=== PATIENT | female | born 1970 | race Caucasian/White ===

== ENCOUNTER 2018-05-29 11:09 | Inpatient (IN) | payer BC ==
[~2018-05-29] VITALS: Ht 160 cm; Wt 108.3 kg
[~2018-05-29 11:09] MED LIST: LEVO112T4 PO; OMEP40CA6 PO
--- NOTE | 2018-05-29 11:40 | NUR ---
First contact with pt. Pt changing into hospital gown. Pt has steady gait and balance. Family at bedside. KATERINA.
[2018-05-29] MEDS ORDERED: ONDANSETRON 2MG/ML, 2ML IVPush ONE (12:30)
[2018-05-29] MEDS ORDERED: MORPHINE SULFATE 4 MG/ML, 1ML IVPush PRN (12:30)
[2018-05-29] MEDS ORDERED: SODIUM CHLORIDE 0.9% 1,000ML IVBOLUS ONE (12:30)
[2018-05-29] MEDS ORDERED: SODIUM CHLORIDE FLUSH 10ML SYR IVF ONE (12:30)
[2018-05-29] MEDS ORDERED: PIPERACILLIN/TAZO/PMX 3.375GM 50 ML IVPB ONE (12:30)
[2018-05-29] MEDS ORDERED: ACETAMINOPHEN 500 MG TABLET PO ONE (12:30)
[2018-05-29] MEDS ORDERED: VANCOMYCIN PER PHARMACY IV ONE (12:30)
[2018-05-29] MEDS ORDERED: ACETAMINOPHEN 500 MG TABLET ONE (12:36)
[2018-05-29] MEDS ORDERED: ONDANSETRON 2MG/ML, 2ML ONE ×2 (12:55→17:22)
[2018-05-29] MEDS ORDERED: HYDROmorphone 1 MG/ML, 1ML ONE (12:55)
[2018-05-29] MEDS ORDERED: VANCOMYCIN 2,000 MG in SODIUM CHLORIDE 0.9% 500 ML IV ONE (13:00)
[2018-05-29] MEDS ORDERED: HYDROmorphone 1 MG/ML, 1ML IM ONE (13:00)
[2018-05-29 13:21] LABS: BASOPHILS # (AUTO) 0.02 x10^3/uL (0-0.1); BASOPHILS % (AUTO) 0 % (0-1); EOSINOPHILS # (AUTO) 0.11 x10^3/uL (0-0.4); EOSINOPHILS % (AUTO) 1 % (1-7); LYMPHOCYTES # (AUTO) 1.38 x10^3/uL (1-3.4); LYMPHOCYTES % (AUTO) 9 % (22-44); MD NO; MEAN CORPUSCULAR HEMOGLOBIN 26.8 pg (27.0-34.8); MEAN CORPUSCULAR HGB CONC 32.7 g/dL (32.4-35.8); MEAN PLATELET VOLUME 8.6 fL (7.4-10.4); MONOCYTES # (AUTO) 0.38 x10^3/uL (0.2-0.8); MONOCYTES % (AUTO) 3 % (2-9); NEUTROPHILS # (AUTO) 13.42 x10^3/uL (1.8-6.8); NEUTROPHILS % (AUTO) 88 % (42-75); PLATELET COUNT 347 x10^3/uL (130-400); RED BLOOD COUNT 4.87 x10^6/uL (3.82-5.3); RED CELL DISTRIBUTION WIDTH 15.3 % (9.6-15.2)
--- NOTE | 2018-05-29 13:24 | NUR ---
TASK RN: THIS RN PLACED US GUIDED PIV IN PT. PT TEARFUL DURING PROCEDURE. REQUESTING PILLOW FOR COMFORT. PT VERY ANXIOUS DESPIT THERAPEUTIC COMMUNICATION.
[2018-05-29 13:33] LABS: ALANINE AMINOTRANSFERASE 41 U/L (12-78); ALBUMIN 3.5 g/dL (3.4-5.0); ANION GAP 10 mmol/L (5-15); CALCIUM 8.8 mg/dL (8.5-10.1); CHLORIDE 106 mmol/L (98-107); CREATININE 0.97 mg/dL (0.55-1.02)
[2018-05-29 13:35] LABS: ALKALINE PHOSPHATASE 90 U/L (45-117); BILIRUBIN,TOTAL 0.4 mg/dL (0.2-1.0); TOTAL PROTEIN 7.9 g/dL (6.4-8.2)
--- NOTE | 2018-05-29 13:45 | NUR ---
DANE RN NOTE: PATIENT HAS IV FLUIDS RUNNING. PATIENT HAS VANYCO RUNNING. FAMILY AT BS. REQUESTED FAMILY AND PATIENT TO PUT MASK ON FOR DURATION OF ER STAY. FMAILY AND PATIENT COMPLIANT
--- NOTE | 2018-05-29 13:55 | NUR ---
DANE RN: PATIETN TAKEN TO CT SCAN!
[2018-05-29] MEDS ORDERED: IBUPROFEN 200 MG TABLET PO ONE (14:00)
[2018-05-29] MEDS ORDERED: SODIUM CHLORIDE 0.9% 1,000 ML IV ONE (14:02)
[2018-05-29] MEDS ORDERED: OMNIPAQUE 350 MG/ML, 75ML BOTTLE ONE (14:14)
--- NOTE | 2018-05-29 14:22 | NUR ---
Provided report to ELSA Shah. All questions answered. Pt ready to transfer to floor from ED.
[2018-05-29] MEDS ORDERED: SODIUM CHLORIDE 0.9% 1,000 ML IV SCH (14:27)
[2018-05-29 14:30] VITALS: BP 102/68
[2018-05-29] MEDS ORDERED: BISACODYL 10 MG SUPP PR PRN (14:30)
[2018-05-29] MEDS ORDERED: LIDODERM 5% PATCH TD PRN (14:30)
[2018-05-29] MEDS ORDERED: ONDANSETRON ODT 4 MG PO PRN (14:30)
[2018-05-29] MEDS ORDERED: ONDANSETRON 2MG/ML, 2ML IVPush PRN (14:30)
[2018-05-29] MEDS ORDERED: VANCOMYCIN PER PHARMACY MC PRN (14:30)
[2018-05-29] MEDS ORDERED: ZOLPIDEM 5MG TABLET PO PRN (14:30)
[2018-05-29 15:07] LABS: FREE T4 (FREE THYROXINE) 1.36 ng/dL (0.76-1.46); THYROID STIMULATING HORMONE 0.451 mIU/L (0.358-3.740)
[2018-05-29 15:44] LABS: HCT (SEDRATE) 39.5 % (34.6-47.8)
[2018-05-29 16:00] VITALS: BP 102/68
[2018-05-29] MEDS ORDERED: PHARMACOKINETIC MONITORING MC PRN (16:00)
[2018-05-29] MEDS ORDERED: PHARMACOKINETIC CONSULTATION MC ONE (16:00)
[2018-05-29] MEDS ORDERED: FENTANYL PF 100 MCG/2ML ONE ×3 (16:54→18:54)
[2018-05-29] MEDS ORDERED: MIDAZOLAM 1 MG/ML, 2ML ONE (16:54)
[2018-05-29] MEDS ORDERED: LABETALOL 5MG/ML, 20ML IV PRN (17:00)
[2018-05-29] MEDS ORDERED: LORazepam 2 MG/ML, 1ML IVPush PRN (17:00)
[2018-05-29] MEDS ORDERED: ACETAMINOPHEN 325 MG TABLET PO PRN (17:00)
[2018-05-29] MEDS ORDERED: METOCLOPRAMIDE 5 MG/ML, 2ML IV PRN (17:00)
[2018-05-29] MEDS ORDERED: MEPERIDINE/PF 25MG/0.5ML IVPush PRN (17:00)
[2018-05-29] MEDS ORDERED: DEXAMETHASONE 4 MG/ML, 1ML ONE (17:22)
[2018-05-29] MEDS ORDERED: KETOROLAC 30 MG/1 ML ONE (17:22)
[2018-05-29] MEDS ORDERED: PROPOFOL 10 MG/ML, 20ML ONE (17:22)
[2018-05-29] MEDS ORDERED: SUCCINYLCHOLINE 20 MG/ML, 10ML ONE (17:22)
[2018-05-29 17:46] LABS: MICROSCOPIC NOT IND
[2018-05-29 17:50] LABS: CULTURE INDICATED? NO
[2018-05-29] MEDS ORDERED: BUPIVACAINE/PF-EPI 0.5% 1:200K ONE (17:53)
[2018-05-29] MEDS ORDERED: BUPIVACAINE/PF-EPI 0.5% 1:200K INFIL ONE (17:56)
[2018-05-29] MEDS ORDERED: OXYcodone 5 MG/5 ML ORAL.SOL UDC ONE ×2 (18:23→18:54)
[2018-05-29] MEDS: OXYcodone 5 MG/5 ML ORAL.SOL UDC PO PRN ×2 (18:40→18:55)
[2018-05-29] MEDS: FENTANYL PF 100 MCG/2ML IV PRN ×2 (18:55→19:00)
[2018-05-29] MEDS ORDERED: HYDROmorphone 2 MG/ML, 1ML ONE (19:13)
[2018-05-29] MEDS: HYDROmorphone 2 MG/ML, 1ML IVPush PRN ×2 (19:14→19:21)
[2018-05-29 19:52] VITALS: BP 112/68
[2018-05-29] MEDS ORDERED: HYDROmorphone 1 MG/ML, 1ML IV PRN (20:00)
[2018-05-29] MEDS: PIPERACILLIN/TAZO/PMX 3.375GM 50 ML IV SCH (21:13)
[2018-05-29] MEDS: ENOXAPARIN 40 MG/0.4 ML SQ SCH (22:05)
[2018-05-30] MEDS: HYDROcodone/APAP 5/325 TABLET PO PRN ×5 (01:15→19:16)
[2018-05-30 03:09] VITALS: BP 94/55
[2018-05-30] MEDS: PIPERACILLIN/TAZO/PMX 3.375GM 50 ML IV SCH ×4 (03:24→23:16)
[2018-05-30 04:44] LABS: MEAN CORPUSCULAR HEMOGLOBIN 27.6 pg (27.0-34.8); MEAN CORPUSCULAR HGB CONC 33.3 g/dL (32.4-35.8); MEAN CORPUSCULAR VOLUME 82.8 fL (80-100); MEAN PLATELET VOLUME 8.5 fL (7.4-10.4); PLATELET COUNT 308 x10^3/uL (130-400); RED BLOOD COUNT 4.36 x10^6/uL (3.82-5.3); RED CELL DISTRIBUTION WIDTH 15.3 % (9.6-15.2)
[2018-05-30 04:57] LABS: ANION GAP 7 mmol/L (5-15); CALCIUM 8.4 mg/dL (8.5-10.1); CHLORIDE 109 mmol/L (98-107)
[2018-05-30 05:06] LABS: CHOL/HDL RATIO 5.8; CHOLESTEROL, TOTAL 250 mg/dL (140-239); CREATININE 1.06 mg/dL (0.55-1.02); HDL CHOL % 17 % (28-40); HDL CHOLESTEROL (DIRECT) 43 mg/dL (40-60); LDL CHOLESTEROL,CALCULATED 189 mg/dL (54-169); LDL/HDL RATIO 4.4 (0.5-3.0); TRIGLYCERIDES 90 mg/dL (50-200); VLDL CHOLESTEROL 18 mg/dL (0-25)
[2018-05-30 05:22] LABS: BASOPHILS # (AUTO) 0.07 x10^3/uL (0-0.1); BASOPHILS % (AUTO) 0 % (0-1); EOSINOPHILS % (AUTO) 0 % (1-7); LYMPHOCYTES # (AUTO) 1.34 x10^3/uL (1-3.4); LYMPHOCYTES % (AUTO) 6 % (22-44); MD SCAN; MONOCYTES # (AUTO) 0.39 x10^3/uL (0.2-0.8); MONOCYTES % (AUTO) 2 % (2-9); NEUTROPHILS # (AUTO) 21.46 x10^3/uL (1.8-6.8); NEUTROPHILS % (AUTO) 92 % (42-75)
[2018-05-30] MEDS: DOCUSATE 100 MG CAPSULE PO PRN (05:46)
[2018-05-30] MEDS: LEVOTHYROXINE 112 MCG TABLET PO SCH (05:46)
[2018-05-30 08:35] VITALS: BP 105/65
[2018-05-30] MEDS: VANCOMYCIN 1,900 MG in SODIUM CHLORIDE 0.9% 250 ML IV SCH (08:43)
[2018-05-30] MEDS: POLYETHYLENE GLYCOL 17 GM PACKET PO PRN (17:20)
[2018-05-30] MEDS: SODIUM CHLORIDE 0.9% 1,000 ML IV SCH ×2 (17:27→22:41)
[2018-05-30 19:20] VITALS: BP 115/69
[2018-05-30] MEDS: ENOXAPARIN 40 MG/0.4 ML SQ SCH (22:41)
[2018-05-31 02:21] VITALS: BP 143/82
[2018-05-31] MEDS: VANCOMYCIN 1,900 MG in SODIUM CHLORIDE 0.9% 250 ML IV SCH (04:08)
[2018-05-31] MEDS: PIPERACILLIN/TAZO/PMX 3.375GM 50 ML IV SCH ×3 (06:13→18:45)
[2018-05-31] MEDS: LEVOTHYROXINE 112 MCG TABLET PO SCH (06:13)
[2018-05-31] MEDS: OMEPRAZOLE 20 MG CAPSULE.DR PO SCH (06:13)
[2018-05-31] MEDS: SODIUM CHLORIDE 0.9% 1,000 ML IV SCH ×3 (06:34→23:37)
[2018-05-31] MEDS: HYDROcodone/APAP 5/325 TABLET PO PRN ×4 (06:35→20:50)
[2018-05-31 06:47] LABS: BASOPHILS # (AUTO) 0.01 x10^3/uL (0-0.1); BASOPHILS % (AUTO) 0 % (0-1); EOSINOPHILS # (AUTO) 0.23 x10^3/uL (0-0.4); EOSINOPHILS % (AUTO) 1 % (1-7); LYMPHOCYTES # (AUTO) 3.02 x10^3/uL (1-3.4); LYMPHOCYTES % (AUTO) 19 % (22-44); MD NO; MEAN CORPUSCULAR HEMOGLOBIN 27.6 pg (27.0-34.8); MEAN CORPUSCULAR HGB CONC 33.1 g/dL (32.4-35.8); MEAN CORPUSCULAR VOLUME 83.2 fL (80-100); MEAN PLATELET VOLUME 8.6 fL (7.4-10.4); MONOCYTES # (AUTO) 0.72 x10^3/uL (0.2-0.8); MONOCYTES % (AUTO) 5 % (2-9); NEUTROPHILS # (AUTO) 11.97 x10^3/uL (1.8-6.8); NEUTROPHILS % (AUTO) 75 % (42-75); PLATELET COUNT 286 x10^3/uL (130-400); RED BLOOD COUNT 3.89 x10^6/uL (3.82-5.3); RED CELL DISTRIBUTION WIDTH 15.4 % (9.6-15.2)
[2018-05-31 06:54] LABS: ANION GAP 3 mmol/L (5-15); CALCIUM 8.2 mg/dL (8.5-10.1); CHLORIDE 113 mmol/L (98-107); CREATININE 0.71 mg/dL (0.55-1.02)
[2018-05-31 08:44] VITALS: BP 131/74
[2018-05-31] MEDS: POLYETHYLENE GLYCOL 17 GM PACKET PO PRN (11:20)
[2018-05-31] MEDS: DOCUSATE 100 MG CAPSULE PO PRN (11:20)
[2018-05-31 14:52] VITALS: BP 136/75
[2018-05-31 21:36] VITALS: BP 134/79
[2018-05-31] MEDS: ENOXAPARIN 40 MG/0.4 ML SQ SCH (22:06)
[2018-06-01] MEDS: PIPERACILLIN/TAZO/PMX 3.375GM 50 ML IV SCH ×4 (00:20→17:21)
[2018-06-01] MEDS: DOCUSATE 100 MG CAPSULE PO PRN (01:02)
[2018-06-01] MEDS: HYDROcodone/APAP 5/325 TABLET PO PRN ×5 (01:02→21:35)
[2018-06-01 03:37] VITALS: BP 125/69
[2018-06-01 06:04] LABS: ANION GAP 7 mmol/L (5-15); CALCIUM 8.2 mg/dL (8.5-10.1); CHLORIDE 110 mmol/L (98-107)
[2018-06-01 06:05] LABS: BASOPHILS # (AUTO) 0.06 x10^3/uL (0-0.1); BASOPHILS % (AUTO) 1 % (0-1); EOSINOPHILS # (AUTO) 0.62 x10^3/uL (0-0.4); EOSINOPHILS % (AUTO) 6 % (1-7); LYMPHOCYTES # (AUTO) 3.15 x10^3/uL (1-3.4); LYMPHOCYTES % (AUTO) 32 % (22-44); MD NO; MEAN CORPUSCULAR HGB CONC 32.7 g/dL (32.4-35.8); MEAN CORPUSCULAR VOLUME 82.4 fL (80-100); MEAN PLATELET VOLUME 8.1 fL (7.4-10.4); MONOCYTES # (AUTO) 0.48 x10^3/uL (0.2-0.8); MONOCYTES % (AUTO) 5 % (2-9); NEUTROPHILS # (AUTO) 5.45 x10^3/uL (1.8-6.8); NEUTROPHILS % (AUTO) 56 % (42-75); PLATELET COUNT 322 x10^3/uL (130-400); RED BLOOD COUNT 3.97 x10^6/uL (3.82-5.3); RED CELL DISTRIBUTION WIDTH 15.3 % (9.6-15.2)
[2018-06-01 06:06] LABS: CREATININE 0.86 mg/dL (0.55-1.02)
[2018-06-01] MEDS: SODIUM CHLORIDE 0.9% 1,000 ML IV SCH ×2 (06:06→14:27)
[2018-06-01] MEDS: LEVOTHYROXINE 112 MCG TABLET PO SCH (06:06)
[2018-06-01 08:26] VITALS: BP 147/77
[2018-06-01 15:57] VITALS: BP 161/94
[2018-06-01 19:26] VITALS: BP 177/100
[2018-06-01] MEDS: hydrALAzine 20 MG/ML, 1ML IVPush PRN (20:01)
[2018-06-01] MEDS ORDERED: hydrALAzine 20 MG/ML, 1ML IV PRN (21:30)
[2018-06-01] MEDS: ENOXAPARIN 40 MG/0.4 ML SQ SCH (21:30)
[2018-06-01 23:10] VITALS: BP 156/80
[2018-06-02] MEDS: PIPERACILLIN/TAZO/PMX 3.375GM 50 ML IV SCH ×3 (00:11→12:15)
[2018-06-02] MEDS: SODIUM CHLORIDE 0.9% 1,000 ML IV SCH ×2 (00:11→06:27)
[2018-06-02] MEDS ORDERED: PROMETHAZINE 25 MG/ML, 1ML IM PRN (00:30)
[2018-06-02 01:41] VITALS: BP 154/88
[2018-06-02] MEDS: ACETAMINOPHEN 325 MG TABLET PO PRN ×4 (04:34→20:38)
[2018-06-02 04:48] LABS: BASOPHILS # (AUTO) 0.03 x10^3/uL (0-0.1); BASOPHILS % (AUTO) 0 % (0-1); EOSINOPHILS # (AUTO) 0.39 x10^3/uL (0-0.4); EOSINOPHILS % (AUTO) 4 % (1-7); LYMPHOCYTES % (AUTO) 18 % (22-44); MD NO; MEAN CORPUSCULAR HEMOGLOBIN 27.3 pg (27.0-34.8); MEAN CORPUSCULAR VOLUME 82.6 fL (80-100); MEAN PLATELET VOLUME 8.2 fL (7.4-10.4); MONOCYTES # (AUTO) 0.38 x10^3/uL (0.2-0.8); MONOCYTES % (AUTO) 4 % (2-9); NEUTROPHILS # (AUTO) 8.34 x10^3/uL (1.8-6.8); NEUTROPHILS % (AUTO) 75 % (42-75); PLATELET COUNT 382 x10^3/uL (130-400); RED BLOOD COUNT 4.27 x10^6/uL (3.82-5.3); RED CELL DISTRIBUTION WIDTH 15.6 % (9.6-15.2)
[2018-06-02 05:01] LABS: CALCIUM 8.7 mg/dL (8.5-10.1); CHLORIDE 106 mmol/L (98-107)
[2018-06-02 05:05] LABS: ANION GAP 7 mmol/L (5-15); CREATININE 0.84 mg/dL (0.55-1.02)
[2018-06-02] MEDS: OMEPRAZOLE 20 MG CAPSULE.DR PO SCH (05:24)
[2018-06-02] MEDS: LEVOTHYROXINE 112 MCG TABLET PO SCH (05:26)
[2018-06-02 07:40] VITALS: BP 151/79
[2018-06-02] MEDS ORDERED: FUROSEMIDE 40 MG/4 ML IV ONE (12:30)
[2018-06-02] MEDS ORDERED: CEFAZOLIN 2,000 MG in SODIUM CHLORIDE 0.9% 50 ML IV SCH (14:30)
[2018-06-02] MEDS ORDERED: CEFAZOLIN PMX 2GM/50ML 50 ML IVPB SCH (14:30)
[2018-06-02 14:45] VITALS: BP 160/88
[2018-06-02] MEDS: CEFAZOLIN PMX 2GM/50ML 50 ML IVPB SCH ×2 (15:00→22:54)
[2018-06-02 20:00] VITALS: BP 150/82
[2018-06-02] MEDS: ENOXAPARIN 40 MG/0.4 ML SQ SCH (22:51)
[2018-06-03 02:00] VITALS: BP 173/84
[2018-06-03] MEDS: LEVOTHYROXINE 112 MCG TABLET PO SCH (04:54)
[2018-06-03 05:37] LABS: BASOPHILS # (AUTO) 0.05 x10^3/uL (0-0.1); BASOPHILS % (AUTO) 0 % (0-1); EOSINOPHILS # (AUTO) 0.68 x10^3/uL (0-0.4); EOSINOPHILS % (AUTO) 6 % (1-7); LYMPHOCYTES % (AUTO) 31 % (22-44); MD NO; MEAN CORPUSCULAR HEMOGLOBIN 27.3 pg (27.0-34.8); MEAN CORPUSCULAR VOLUME 82.9 fL (80-100); MEAN PLATELET VOLUME 8.1 fL (7.4-10.4); MONOCYTES # (AUTO) 0.66 x10^3/uL (0.2-0.8); MONOCYTES % (AUTO) 5 % (2-9); NEUTROPHILS # (AUTO) 7.02 x10^3/uL (1.8-6.8); NEUTROPHILS % (AUTO) 58 % (42-75); PLATELET COUNT 415 x10^3/uL (130-400); RED BLOOD COUNT 4.41 x10^6/uL (3.82-5.3); RED CELL DISTRIBUTION WIDTH 15.3 % (9.6-15.2)
[2018-06-03 05:41] LABS: ANION GAP 7 mmol/L (5-15); CALCIUM 8.9 mg/dL (8.5-10.1); CHLORIDE 107 mmol/L (98-107)
[2018-06-03 05:42] LABS: CREATININE 0.89 mg/dL (0.55-1.02)
[2018-06-03] MEDS ORDERED: CEPHALEXIN 500 MG CAPSULE PO SCH (07:00)
[2018-06-03 07:50] VITALS: BP 179/74
[2018-06-03] MEDS: hydrALAzine 20 MG/ML, 1ML IVPush PRN (07:59)
[2018-06-03] MEDS ORDERED: CEPH-368 PO (12:02)
[2018-06-03] MEDS ORDERED: CEPH-376 PO (12:02)
[2018-06-03] MEDS ORDERED: ACET325T14 PO (12:02)
[2018-06-03] MEDS ORDERED: HYDR-3343 PO (12:24)
[2018-06-03 13:30] VITALS: BP 166/95
== END 2018-06-03 13:50 | disposition home or self-care (01) | DRG 856 ==
LOC: ED 14:29 → 3NW 14:58 → DCLOUNGE 06-03 13:30
PROVIDERS: ADMIT Hospitalist; ATTEND Hospitalist
PROC: 0HPT0NZ Removal of Tissue Expander from Right Breast, Open Approach (ICD-10-PCS; principal; 2018-05-29 17:00)
PROC: 02HV33Z Insertion of Infusion Device into Superior Vena Cava, Percutaneous Approach (ICD-10-PCS; 2018-05-30)
PROC: B5181ZA Fluoroscopy of Superior Vena Cava using Low Osmolar Contrast, Guidance (ICD-10-PCS; 2018-05-30)
PROC: B548ZZA Ultrasonography of Superior Vena Cava, Guidance (ICD-10-PCS; 2018-05-30)
DX: T81.41XA Infection following a procedure, superficial incisional surgical site, initial encounter (principal); A41.9 Sepsis, unspecified organism; T85.79XA Infection and inflammatory reaction due to other internal prosthetic devices, implants and grafts, initial encounter; L03.313 Cellulitis of chest wall; Y83.1 Surgical operation with implant of artificial internal device as the cause of abnormal reaction of the patient, or of later complication, without mention of misadventure at the time of the procedure; D63.8 Anemia in other chronic diseases classified elsewhere; E78.00 Pure hypercholesterolemia, unspecified; K76.0 Fatty (change of) liver, not elsewhere classified; K21.9 Gastro-esophageal reflux disease without esophagitis; E78.5 Hyperlipidemia, unspecified; E89.0 Postprocedural hypothyroidism; N61.1 Abscess of the breast and nipple; F41.9 Anxiety disorder, unspecified; Z85.3 Personal history of malignant neoplasm of breast; Z90.13 Acquired absence of bilateral breasts and nipples; Y92.89 Other specified places as the place of occurrence of the external cause; Z80.3 Family history of malignant neoplasm of breast; Z90.710 Acquired absence of both cervix and uterus; Z92.3 Personal history of irradiation; Z88.8 Allergy status to other drugs, medicaments and biological substances
CPT/HCPCS: 36415; 36573; 71260; 80048; 80053; 80061; 81003; 83605; 83735; 84100; 84439; 84443; 85025; 85651; 86140; 87040; 87070; 87075; 87077; 87186; 87205; 96374; 96375; 96376; C1729; G0378; J0690; J1100; J1170; J1650; J1885; J1940; J2250; J2405; J2543; J2550; J2704; J3010; J3370; Q0162; Q9967; C1751; J0330; J0360; J7030; J7040; J7050

== ENCOUNTER → 2018-06-22 | Outpatient (CLI) | payer BC ==
[~2018-06-22] MED LIST changes: +ACET325T14 PO; +CEPH-368 PO; +CEPH-376 PO; +HYDR-3343 PO
== END | disposition home or self-care (01) ==
LOC: RAD 15:37
PROVIDERS: ATTEND Specialist
DX: M79.89 Other specified soft tissue disorders (principal); M79.602 Pain in left arm; C50.811 Malignant neoplasm of overlapping sites of right female breast

== ENCOUNTER 2018-06-28 09:55 | Emergency (ER) | payer BC ==
[~2018-06-28] VITALS: Ht 160 cm; Wt 52.2 kg
--- NOTE | 2018-06-28 10:11 | NUR ---
PREPARER MAKING DEPARTMENT: PT TO ED ROOM 25 AT THIS TIME
[2018-06-28 10:43] LABS: MEAN CORPUSCULAR HEMOGLOBIN 26.8 pg (27.0-34.8); MEAN CORPUSCULAR HGB CONC 33.6 g/dL (32.4-35.8); MEAN CORPUSCULAR VOLUME 79.6 fL (80-100); MEAN PLATELET VOLUME 9.1 fL (7.4-10.4); PLATELET COUNT 229 x10^3/uL (130-400); RED BLOOD COUNT 4.72 x10^6/uL (3.82-5.3); RED CELL DISTRIBUTION WIDTH 15.5 % (9.6-15.2)
[2018-06-28 10:53] LABS: ALBUMIN 3.6 g/dL (3.4-5.0); ANION GAP 8 mmol/L (5-15); CALCIUM 9.3 mg/dL (8.5-10.1); CHLORIDE 104 mmol/L (98-107)
[2018-06-28] MEDS ORDERED: SODIUM CHLORIDE FLUSH 10ML SYR IVF ONE (11:00)
--- NOTE | 2018-06-28 11:00 | NUR ---
RECEIVED REPORT FROM SONALI HUNTER, ASSUMING CARE OF PT
[2018-06-28] MEDS ORDERED: HYDROmorphone 1 MG/ML, 1ML ONE ×2 (11:03→14:46)
--- NOTE | 2018-06-28 11:05 | NUR ---
PT TAKEN TO RAD
[2018-06-28 11:35] LABS: MD YES
[2018-06-28 11:38] LABS: BAND#(MANUAL) 0.05 x10^3/uL; BANDS%(MANUAL) 1 % (0-7); BASOS#(MANUAL) 0.05 x10^3/uL (0-0.1); BASOS% (MANUAL) 1 % (0-1); EOS#(MANUAL) 0.14 x10^3/uL (0.0-0.4); EOS% (MANUAL) 3 % (1-7); LYMPHS% (MANUAL) 63 % (22-44); MONOS#(MANUAL) 0.64 x10^3/uL (0.3-2.7); MONOS% (MANUAL) 14 % (2-9); SEG#(MANUAL) 0.69 x10^3/uL (1.8-6.8); SEGS% (MANUAL) 15 % (42-75)
[2018-06-28 11:39] LABS: OTHER CELLS # (MANUAL) 0.14 x10^3/uL (0-0); OTHER CELLS % (MANUAL) 3 % (0-0)
[2018-06-28 11:40] LABS: ALBUMIN 3.6 g/dL (3.4-5.0); BILIRUBIN, DIRECT 0.2 mg/dL (0.1-0.2)
[2018-06-28 11:42] LABS: <PLATELET ESTIMATE> ADEQUATE; <PLT MORPHOLOGY> NORMAL PLT MORPH; <RBC MORPHOLOGY> NORMAL; BILIRUBIN,INDIRECT 0.4 mg/dL (0.0-2.0); BILIRUBIN,TOTAL 0.6 mg/dL (0.2-1.0); TOTAL PROTEIN 8.1 g/dL (6.4-8.2)
[2018-06-28] MEDS: HYDROmorphone 1 MG/ML, 1ML IVPush PRN ×2 (11:44→14:53)
--- NOTE | 2018-06-28 11:44 | NUR ---
PT BACK FROM IMAGING. UP TO RESTROOM WITHOUT ASSISTANCE NEEDED. UA COLLECTED AND SENT TO LAB. PT MEDICATED THROUGH PICC PER REQUEST WITH PAIN MEDICATION 910 PAIN REPORTED IN BACK. FAMILY AT BEDSIDE. CALL LIGHT WITHIN REACH. AWAITING RESULTS AT THIS TIME
[2018-06-28 11:52] LABS: MICROSCOPIC NOT IND
[2018-06-28 12:30] LABS: CULTURE INDICATED? NO
--- NOTE | 2018-06-28 12:31 | NUR ---
PT RESTING IN BED, PAIN DECREASED TO 3/10 WITH MOVEMENT. AWAITING UA RESULTS AND DISPO AT THIS TIME
[2018-06-28] MEDS ORDERED: SODIUM CHLORIDE 0.9% 1,000ML IVBOLUS ONE (13:00)
--- NOTE | 2018-06-28 13:23 | NUR ---
FLUIDS STARTED PER MAR AND ORDER BY MD. AFTER FLUIDS SECOND LACTIC TO BE DRAWN. PT INFORMED. FAMILY AT BEDSIDE. CALL LIGHT WITHIN REACH
--- NOTE | 2018-06-28 13:58 | NUR ---
FLUIDS STILL RUNNING, PT RESTING IN BED WITHOUT COMPLAINTS AT THIS TIME. VSS. WILL CONTINUE TO MONITOR
--- NOTE | 2018-06-28 14:13 | NUR ---
SECOND LACTIC DRAWN AT THIS TIME FROM PICC PER PT REQUEST
--- NOTE | 2018-06-28 14:34 | NUR ---
MD TO BEDSIDE TO UPDATE PT ON POC, AWAITING LACTIC RESULTS AT THIS TIME
[2018-06-28 15:59] VITALS: BP 107/64
== END 2018-06-28 16:22 | disposition home or self-care (01) ==
LOC: ED 10:43
DX: M54.5 Low back pain (principal); E86.0 Dehydration; R10.2 Pelvic and perineal pain; E78.00 Pure hypercholesterolemia, unspecified; Z85.3 Personal history of malignant neoplasm of breast
CPT/HCPCS: 36415; 71045; 72110; 72190; 80048; 80076; 81003; 82040; 83605; 84145; 85025; 87040; 96361; 96374; 96376; 99284; J1170; J7030

== ENCOUNTER 2018-08-09 14:35 | Outpatient (CLI) | payer BC | END 2018-08-09 23:59 | disposition home or self-care (01) | LOC: RAD 14:35 | PROVIDERS: ATTEND Specialist | DX: M25.512 Pain in left shoulder (principal); R60.0 Localized edema; C50.811 Malignant neoplasm of overlapping sites of right female breast ==

== ENCOUNTER → 2018-09-07 | Outpatient (CLI) | payer BC | END | disposition home or self-care (01) | LOC: CFH 08:05 | PROVIDERS: ATTEND Family Medicine | DX: R10.9 Unspecified abdominal pain (principal) | CPT/HCPCS: 76705 ==

== ENCOUNTER → 2018-09-22 | Outpatient (CLI) | payer BC ==
[~2018-09-22] MED LIST changes: +OMNIPAQUE 350 MG/ML, 100ML BOTTLE ONE
== END | disposition home or self-care (01) ==
LOC: CFH 11:12
PROVIDERS: ATTEND Family Medicine
DX: K44.9 Diaphragmatic hernia without obstruction or gangrene (principal); K76.0 Fatty (change of) liver, not elsewhere classified; I70.0 Atherosclerosis of aorta; K43.9 Ventral hernia without obstruction or gangrene; C50.919 Malignant neoplasm of unspecified site of unspecified female breast; M51.37 Other intervertebral disc degeneration, lumbosacral region; Z90.11 Acquired absence of right breast and nipple; Z98.890 Other specified postprocedural states
CPT/HCPCS: 74160; Q9967